=== PATIENT | male | born 1965 | race Caucasian/White ===

== ENCOUNTER 2018-11-30 15:33 | Outpatient (CLI) | payer BC ==
[~2018-11-30] VITALS: Ht 172.7 cm; Wt 122.9 kg
[2018-11-30] MEDS ORDERED: albuterol 2.5 MG/3 ML nebule NEB PRN (16:20)
[2018-11-30 16:25] LABS: ABG BASE EXCESS -0.5 mmol/L (-2.0-3.0); ABG HCO3 23.5 mmol/L (22.0-26.0); ABG OXYGEN SATURATION 93.6 % (95-98); ABG PCO2 (T) 37.1 mmHg (35.0-48.0); ABG PO2 (T) 68.8 mmHg (83-108); FCOHb 0.8 % (0.5-1.5); FMetHb 0.2 % (0.3-1.12); FO2Hb 92.7 % (94-100); RESPIRATORY RATE (OBSERVED) 16 b/min; TOTAL HEMOGLOBIN 16.8 G/dl (14.0-18.0)
== END 2018-11-30 23:59 | disposition home or self-care (01) ==
LOC: RT 15:33
PROVIDERS: ATTEND Internal Medicine Pulmonary Disease
DX: Z01.818 Encounter for other preprocedural examination (principal); G47.33 Obstructive sleep apnea (adult) (pediatric); Z87.891 Personal history of nicotine dependence
CPT/HCPCS: 36600; 82803; 85018; 94060; 94760

== ENCOUNTER 2020-09-11 15:41 | Outpatient (CLI) | payer BC ==
[~2020-09-11] VITALS: Ht 170.2 cm; Wt 114.3 kg
[2020-09-11 16:13] LABS: ABG BASE EXCESS 2.2 mmol/L (-2.0-2.0); ABG HCO3 27.4 mmol/L (22.0-26.0); ABG OXYGEN SATURATION 93.4 % (94-97); ABG PCO2 (T) 44.2 mmHg (35.0-48.0); ABG PO2 (T) 61.3 mmHg (75.0-100.0); ALLEN'S TEST POSITIVE; FCOHb 0.8 % (0.0-3.9); FMetHb 0.1 % (0.0-1.5); FO2Hb 92.6 % (94-97); TOTAL HEMOGLOBIN 16.8 G/dl (14.0-18.0)
[2020-09-11] MEDS ORDERED: albuterol 2.5 MG/3 ML nebule NEB ONE (16:25)
== END 2020-09-11 23:59 | disposition home or self-care (01) ==
LOC: RT 15:41
PROVIDERS: ATTEND Internal Medicine Pulmonary Disease
DX: R06.02 Shortness of breath (principal); G47.30 Sleep apnea, unspecified
CPT/HCPCS: 36600; 82803; 85018; 94060; 94727; 94729; 94760